=== PATIENT | male | born 2000 | race Caucasian/White ===

== ENCOUNTER 2021-07-12 18:47 | Emergency (ER) | payer OTHER, SELFPAY ==
--- NOTE | ~2021-07-12 | XR_ITS ---
EXAM: XR foot RT min 3V DATE: 07/12/2021 19:27 HISTORY: injured right foot kicking a rock, pain on 1st metatarsal . COMPARISON: None available. FINDINGS: Normal mineralization. No fracture or dislocation. No lytic or blastic lesion. Joint space s are maintained. No erosion or periosteal change. Soft tissues within normal limits. IMPRESSION: No acute osseous finding in the right foot. Reviewed, dictated and finalized at location K.
[2021-07-12 19:16] VITALS: BP 121/83; PULSE 107; RESP 18; TEMP 36.9; O2SAT 100
--- NOTE | 2021-07-12 19:18 | ED.LOWEXIN ---
HPI - Extremity Injury (Lower) General Chief Complaint: Extremity Injury, Lower Stated Complaint: rt foot injury Time Seen by Provider: 07/12/21 19:18 Source: patient Mode of arrival: wheelchair Limitations: no limitations History of Present Illness HPI Narrative: 21-year-old male presents with complaint of pain to right foot. States that he was trying to quickly weed eat for his friend and accidentally kicked his right foot into a large landscaping [place]. States that pain is getting progressively worse. Injury was approximately 1.5 hours ago. Reports that he used a garden hoe for support to walk into urgent care today he was then brought to exam room via wheelchair. Range of motion and distal neurovascularly intact. All systems reviewed and negative except as noted above. Related Data Home Medications Medication Instructions Recorded Confirmed No Home Medications 07/12/21 07/12/21 Allergies Allergy/AdvReac Type Severity Reaction Status Date / Time pollen extracts Allergy Unknown Verified 07/12/21 19:22 Review of Systems Review of Systems: CONSTITUTIONAL: Denies fever, chills, or sweats. EYES: Denies visual changes, redness, or discharge. ENT: Denies rhinorrhea, congestion, sore throat, or otalgia. CARDIOVASCULAR: Denies chest pain, palpitations, or edema. RESPIRATORY: Denies cough or dyspnea. GASTROINTESTINAL: Denies abdominal pain, nausea, vomiting, or diarrhea. GENITOURINARY: Denies dysuria or hematuria. SKIN: Denies rash or itching. MUSCULOSKELETAL: Denies back pain, joint pain, or myalgia. Pain and swelling to right foot. NEUROLOGIC: Denies headache, numbness, or weakness. PSYCHIATRIC: Denies anxiety or depression. All other systems reviewed are negative, except as documented in HPI. PMFSH Comments At time of signature, agree with nursing past medical, surgical, social and family history. There is no relevant family history pertinent to the presenting complaint. Exam Narrative: GENERAL: This is a well-nourished, well-developed patient, in no apparent distress. HEAD: normocephalic, atraumatic. EYES: PERRL. Sclera clear/white. Vision is grossly intact. EARS: External ears normal NOSE: External nose normal NECK: Neck supple, non-tender without lymphadenopathy, masses or thyromegaly. CARDIOVASCULAR: Regular rate and rhythm without murmurs, gallops, or rubs. RESPIRATORY: Clear to auscultation. Breath sounds equal bilaterally. No wheezes, rales, or rhonchi. SKIN: warm, Dry, intact with no suspicious lesions or rash, good texture and turgor. NEURO: awake, alert, and oriented to person, place and time. There were no obvious focal neurologic abnormalities. EXTREMITIES: Normal range of motion to all extremities. Tenderness to dorsal aspect right foot with mild swelling. Extrem: Ankle/foot/toe images: 1. Tenderness on palpation with mild swelling. Course Course Level of Care: Express Care Visit Vital Signs Vital signs: Vital Signs Temperature 36.9 C 07/12/21 19:16 Pulse Rate 107 H 07/12/21 19:16 Respiratory Rate 18 07/12/21 19:16 Blood Pressure 121/83 07/12/21 19:16 Pulse Oximetry 100 07/12/21 19:16 Temperature 36.9 C 07/12/21 19:16 Pulse Rate 107 H 07/12/21 19:16 Respiratory Rate 18 07/12/21 19:16 Blood Pressure 121/83 07/12/21 19:16 Pulse Oximetry 100 07/12/21 19:16 Reviewed MDM - Extremity Injury (Lower) MDM Narrative Medical decision making narrative: Discussed x-ray result with patient. Negative for fracture. We will treat patient for contusion. Recommend ibuprofen and Tylenol and follow-up with primary care physician if pain is not improving. Patient is aware of diagnosis, understands and agrees to treatment plan. Anticipatory guidance given. Patient agrees to follow-up as directed and is aware of reasons to seek care at the emergency department. Portions of this record may have been created with voice recognition software Imaging Data Attestat
== END 2021-07-12 19:46 | disposition home or self-care (01) ==
PROVIDERS: Emergency Provider Nurse Practitioner Family
DX: S90.31XA Contusion of right foot, initial encounter (principal); W22.8XXA Striking against or struck by other objects, initial encounter
CPT/HCPCS: 73630; 99203; G0463

== ENCOUNTER 2021-07-12 20:16 | Emergency (ER) | payer OTHER, SELFPAY ==
--- NOTE | ~2021-07-12 | XR_ITS ---
EXAM: XR foot RT 2V DATE: 07/12/2021 20:43 HISTORY: pain . COMPARISON: None available. FINDINGS: Normal mineralization. No fracture or dislocation. No lytic or blastic lesion. Joint space s are maintained. No erosion or periosteal change. Soft tissues within normal limits. IMPRESSION: No acute osseous finding in the right foot. Reviewed, dictated and finalized at location K.
[2021-07-12 20:18] VITALS: BP 120/56; PULSE 78; RESP 18; TEMP 36.7; O2SAT 100
--- NOTE | 2021-07-12 20:33 | ED.LOWEXIN ---
HPI - Extremity Injury (Lower) General Chief Complaint: Extremity Injury, Lower Stated Complaint: right foot/ankle pain Time Seen by Provider: 07/12/21 20:28 Source: patient Mode of arrival: ambulatory Limitations: no limitations History of Present Illness HPI Narrative: Patient is a 21-year-old male complaining of right foot pain, 6 out of 10, aching, worse with palpation movement after he accidentally kicked a rock while mowing. Patient denies any other pain or injury. Related Data Home Medications Medication Instructions Recorded Confirmed No Home Medications 07/12/21 07/12/21 Allergies Allergy/AdvReac Type Severity Reaction Status Date / Time pollen extracts Allergy Unknown Verified 07/12/21 20:20 Review of Systems Review of Systems: Per HPI All systems reviewed & are unremarkable except as noted in HPI and below Exam Const: General: no acute distress and alert Orientation/consciousness: patient oriented x3 HENMT: Head: normal to inspection Eyes: Conjunctivae: conjunctivae normal Neck: Neck: normal visual inspection Resp: Effort & Inspection: normal respiratory effort Skin: General skin exam: normal color Rashes: no rashes Neuro: General: patient oriented x3 and moves all extremities Extrem: Other: Negative for any deformity. Mild swelling of the right foot. Full range of motion but with pain. Tenderness on palpation of the right foot and ankle. Neurovascular is intact. Course Vital Signs Vital signs: Vital Signs Temperature 36.7 C 07/12/21 20:18 Pulse Rate 78 07/12/21 20:18 Respiratory Rate 18 07/12/21 20:18 Blood Pressure 120/56 L 07/12/21 20:18 Pulse Oximetry 100 07/12/21 20:18 Temperature 36.7 C 07/12/21 20:18 Pulse Rate 78 07/12/21 20:18 Respiratory Rate 18 07/12/21 20:18 Blood Pressure 120/56 L 07/12/21 20:18 Pulse Oximetry 100 07/12/21 20:18 Discharge Plan Discharge Clinical Impression: Contusion of foot, right Qualifiers: Encounter type: initial encounter Qualified Code(s): S90.31XA - Contusion of right foot, initial encounter Patient Disposition: Home, Self-Care Condition: Improved Instructions: Foot Contusion (ED) Prescriptions: No Action No Home Medications RF: 0 Follow-up/Referrals: PHYSICIAN,[employer]PERVISOR [Primary Care Provider] - 07/14/21 Time of Disposition: 21:53
[2021-07-12] MEDS: IBUPROFEN 600 MG TABLET PO (21:53)
[2021-07-12] MEDS: CYCLOBENZAPRINE HCL 10 MG TABLET PO (21:53)
== END 2021-07-12 22:00 | disposition home or self-care (01) ==
PROVIDERS: Emergency Provider Emergency Medicine
DX: S90.31XA Contusion of right foot, initial encounter (principal); W22.8XXA Striking against or struck by other objects, initial encounter
CPT/HCPCS: 73620; 73630; 99283; A9270